=== PATIENT | female | born 1960 | race Caucasian/White ===

== ENCOUNTER 2019-11-18 20:19 | Emergency (ER) | payer SELFPAY ==
[~2019-11-18] VITALS: Ht 170.2 cm; Wt 81.6 kg
--- OUTSIDE RECORDS SUMMARY | 2019-11-18 20:22 | XMS REPORT ---
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 Allergies, Adverse Reactions, Alerts This patient has no known allergies or adverse reactions. Medications This patient has no known medications. Encounters Start Date/Time End Date/Time Encounter Type Admission Type Attending [facility] Care Facility Care Department Encounter ID 2018-07-16 00:00:00 2018-07-16 00:00:00 Outpatient [facility] [id number] 2018-07-11 07:02:03 2018-07-11 07:02:03 Outpatient [facility] [id number] 2018-06-27 10:14:13 2018-06-27 10:14:13 Outpatient [facility] [id number] 2018-06-27 00:00:00 2018-06-27 00:00:00 Outpatient [facility] [id number]
[2019-11-18] MEDS ORDERED: SODIUM CHLORIDE 0.9% 1000ML 1,000 ML IV STA (20:34)
[2019-11-18] MEDS ORDERED: HYDRALAZINE HCL 20 MG/ML VIAL IV ONE ×2 (20:34→21:00)
[2019-11-18 20:55] LABS: BASOPHILS # (AUTO) 0.1 (0.0-0.1); BASOPHILS % 0.7 % (0.0-1.0); EOSINOPHILS # (AUTO) 0.3 (0.0-0.4); EOSINOPHILS % 2.8 % (0.0-6.0); HEMATOCRIT 39.8 % (34.2-44.1); LYMPHOCYTES % 33.5 % (18.0-39.1); MEAN CORPUSCULAR HEMOGLOBIN 26.9 pg (28-32); MEAN CORPUSCULAR HGB CONC 32.7 g/dL (31-35); MEAN CORPUSCULAR VOLUME 82.2 fL (81-99); MONOCYTES # (AUTO) 0.5 (0.2-0.8); MONOCYTES % 5.3 % (4.4-11.3); NEUTROPHILS # (AUTO) 5.2 (2.1-6.9); NEUTROPHILS % 57.5 % (38.7-80.0); PLATELET COUNT 225 x10e3/uL (140-360); RED BLOOD COUNT 4.84 x10e6/uL (3.6-5.1); RED CELL DISTRIBUTION WIDTH 13.2 % (11.7-14.4)
[2019-11-18 21:15] LABS: ALANINE AMINOTRANSFERASE 15 IU/L (0-55); ALBUMIN 3.4 g/dL (3.5-5.0); ALBUMIN/GLOBULIN RATIO 0.7 (0.8-2.0); ALKALINE PHOSPHATASE 108 IU/L (40-150); ANION GAP 14.8 mmol/L (8-16); BLOOD UREA NITROGEN 20 mg/dL (7-26); BUN/CREATININE RATIO 27 (6-25); CALCIUM 9.2 mg/dL (8.4-10.2); CARBON DIOXIDE 29 mmol/L (22-29); CHLORIDE 98 mmol/L (98-107); CREATINE KINASE 50 IU/L (29-168); CREATININE, SERUM 0.74 mg/dL (0.57-1.11); EST GLOMERULAR FILTRATION RATE > 60 ML/MIN (60-); GLUCOSE 237 mg/dL (74-118); POTASSIUM 3.8 mmol/L (3.5-5.1); SODIUM 138 mmol/L (136-145)
--- NOTE | 2019-11-18 21:56 | Diagnostic Imaging Report ---
Examination: CT head without contrast Clinical Indication: Shaking. Technique: Transaxial noncontrast images from the skull base through the vertex were obtained. Sagittal and coronal reformatted images were done. Dose modulation, iterative reconstruction, and/or weight based adjustment of the mA/kV was utilized to reduce the radiation dose to as low as reasonably achievable. Comparison: None. Findings: Scalp: No abnormalities. Bones: Intact. No fractures. No blastic or lytic lesions. Brain sulci: Appropriate for patient's age. Ventricles: Normal in size and configuration. No hydrocephalus. Extra-axial space: No abnormalities. Parenchyma: No masses, hemorrhage, or acute or chronic cortical based vascular insults. Suprasellar region: No abnormalities. Craniocervical junction: The foramen magnum is patent. No Chiari one malformation. Impression: No acute intracranial abnormality. Signed by: Dr. Estefani Polo M.D. on 11/18/2019 9:54 PM
--- NOTE | 2019-11-18 22:39 | Diagnostic Imaging Report ---
EXAMINATION: CHEST 2 VIEWS INDICATION: Hypoglycemia COMPARISON: None FINDINGS: TUBES and LINES: None. LUNGS: Normal lung volumes. Lungs are clear. No consolidations. PLEURA: No pleural effusion or pneumothorax. HEART AND MEDIASTINUM: The cardiomediastinal silhouette is unremarkable. There are atherosclerotic calcifications within the aorta. BONES AND SOFT TISSUES: No acute osseous lesion. Soft tissues are unremarkable. UPPER ABDOMEN: No free air under the diaphragm. IMPRESSION: No acute thoracic radiographic abnormality. Signed by: Dion High DO on 11/18/2019 10:37 PM
[2019-11-18] MEDS ORDERED: IBUPROFEN 600 MG TAB ONE (23:29)
[2019-11-18] MEDS ORDERED: IBUPROFEN 600 MG TAB PO STA (23:30)
== END 2019-11-19 02:21 | disposition home or self-care (01) ==
LOC: ER 20:19
DX: R53.1 Weakness (principal); T38.3X1A Poisoning by insulin and oral hypoglycemic [antidiabetic] drugs, accidental (unintentional), initial encounter; E11.9 Type 2 diabetes mellitus without complications; I10 Essential (primary) hypertension
CPT/HCPCS: 36415; 70450; 71046; 80053; 82550; 82553; 82948; 83880; 84484; 85025; 93005; 99283; J0360

== ENCOUNTER 2020-05-12 18:24 | Emergency (ER) | payer SELFPAY ==
[~2020-05-12] VITALS: Ht 170.2 cm; Wt 81.6 kg
--- OUTSIDE RECORDS SUMMARY | 2020-05-12 18:42 | XMS REPORT | Continuity of Care Document ---
Author Author [facility] t Organization [facility] Address [address] [place] [address] Phone Unavailable Care Team Providers Care [employer]ator [employer] Name Role Phone NONSTAFF PCP Unavailable Sam Pang MD Attphys [phone] APRIL EDOUARD Attphys Unavailable Problems Condition Name Condition Details Condition Category Status Onset Date Resolution Date Last Treatment Date Treating Clinician Comments Source Type 2 diabetes mellitus, with long-term current use o f insulin Type 2 diabetes mellitus, with long-term current use of insulin Disease Active 2018-07-11 00:00:00 [facility] Atypical ductal hyperplasia of left breast Atypical du ctal hyperplasia of left breast Disease Active 2018-06-27 00:00:00 Overview: Added automatically from request for surgery [id number] [facility] Urinary tract infection Urinary tract infection Problem Active [facility] Allergies, Adverse Reactions, Alerts This patient has no known allergies or adverse reactions. Social History Social Habit Start Date Stop Date Quantity Comments Source Sex Assigned At [facility] Alcohol intake 2018-07-11 00:00:00 2018-07-11 00:00:00 Current non-drinker of alcohol (finding) [facility] Smoking Status Start Date Stop Date Source Never smoker [facility] Medications Ordered Medication Name Filled Medication Name Start Date Stop Da te Current Medication? Ordering Clinician Indication Dosage Frequency Signature (SIG) Comments Components Source albuterol (PROAIR HFA) 90 mcg/actuation inhaler 2020-04-18 00:00:00 2020-05-18 23:59:00 Yes 2{puff} Q4H Inhale 2 puffs every 4 (four) hours as needed for wheezing for up to 30 days. Jose contreras ondansetron (ZOFRAN) 4 MG tablet 2020-04-18 00:00:00 2020-04 23:59:00 No 4mg Q6H Take 1 tablet (4 mg total) by mouth every 6 (six) hours as needed for nausea or vomiting for up to 5 days. Hoa Ramon insulin glargine,hum.rec.anlog (LANTUS SC) 2018-07-11 07:07:57 Yes 70U Inject 70 Units under the skin every evening. [facility] metFORMIN (GLUCOPHAGE) 850 mg tablet 2018-07-11 07:07:57 Ye s 850mg Take 850 mg by mouth 2 times daily (with meals). [facility] GABAPENTIN OR 2018-07-11 07:07:57 Yes Take by mouth 400 mg AM; 800 mg PM . [facility] PRECISION XTRA GLUCOMETER 2009-08-25 00:00:00 Yes Polyneuropathy in diabetes(357.2) use as directed to monitor blood sugars [facility] Vital Signs Vital Name Observation Time Observation Value Comments Source Systolic blood pressure 2020-04-18 13:49:00 142 mm[Hg] Jose Ramon Diastolic blood pressure 2020-04-18 13:49:00 67 mm[Hg] Jose Ramon Heart rate 2020-04-18 13:49:00 91 /min Jose Ramon Body temperature 2020-04-18 13:49:00 37.33 Kylah Sammi Ramon Respiratory rate 2020-04-18 13:49:00 19 /min Sammi Ramon Oxygen saturation in Arterial blood by Pulse oximetry 04-18 13:49:00 96 /min Jose aRmon Body height 2020-04-18 11:34:00 170.2 cm Jose Ramon Body weight 2020-04-18 11:34:00 92.987 kg Jose Ramon BMI 2020-04-18 11:34:00 32.11 kg/m2 Jose Ramon Procedures Procedure Date / Time Performed Performing Clinician Sourc e XR CHEST 1 VW PORTABLE 2020-04-18 12:20:01 Mil Pang ECG ED PRELIMINARY INTERPRETATION 2020-04-18 11:41:59 Mil Pang ECG 12-LEAD 2020-04-18 11:37:40 Mil Pang COVID-19 QUALITATIVE PCR 2020-04-18 00:00:00 Robert Pang HC COMPLETE BLD COUNT W/AUTO DIFF 2020-04-18 00:00:00 Mil Pang COMPREHENSIVE METABOLIC PANEL 2020-04-18 00:00:00 Pang Chri stopher Sam Ramon TROPONIN 2020-04-18 00:00:00 Mil Pang B NATRIURETIC PEPTIDE 2020-04-18 00:00:00 Mil Pang ESTIMATED GFR 2020-04-18 00:00:00 Mil Pang Computed tomography of brain without radiopaque contrast 00:00:00 APRIL EDOUARD [facility] X-ray of chest, two views 2019-11-18 00:00:00 APRIL EDOUARD CH I [facility] Plan of Care Planned Activity Planned Date Details Comments Source Future Scheduled Test 2020-07-09 00:00:00 IMM Influenza Seas onal Jul to December (>/= 19 yrs) [code = IMM Influenza Seasonal Jul to December (>/= 19 yrs)] [facility] Scheduled Test 2020-05-09 00:00:00 INFLUENZA VACCINE [code = INFLUENZA VACCINE] [facility] Scheduled Test 2019-07-11 00:00:00 Hemoglobin A1c mychal surement (procedure) [code = 22474812] [facility] Scheduled Test 2009-12-23 00:00:00 BREAST CANCER SCRE ENING [code = BREAST CANCER SCREENING] [facility] Scheduled Test 2009-12-23 00:00:00 COLONOSCOPY SCREEN ING [code = COLONOSCOPY SCREENING] [facility] Scheduled Test 2009-12-23 00:00:00 SHINGLES VACCINES (#1) [code = SHINGLES VACCINES (#1)] [facility] Scheduled Test 2009-12-23 00:00:00 Screening for adrian gnant neoplasm of colon (procedure) [code = 232996245] [facility] Scheduled Test 1999 00:00:00 Breast Cancer Scrn (Yearly) [code = Breast Cancer Scrn (Yearly)] [facility] Scheduled Test 1980-12-23 00:00:00 Screening for adrian gnant neoplasm of cervix (procedure) [code = 384775380] [place] [facility] 1980-12-23 00:00:00 Screening for adrian gnant neoplasm of cervix (procedure) [code = 261222364] [facility] Scheduled Test 1977-12-23 00:00:00 DM Foot Exam (Year ly) [code = DM Foot Exam (Yearly)] [facility] Scheduled Test 1977-12-23 00:00:00 Urine screening fo r protein (procedure) [code = 668658491] [facility] Scheduled Test 1977-12-23 00:00:00 DM Retinal Exam (Y early) [code = DM Retinal Exam (Yearly)] [facility] Scheduled Test 1969-12-23 00:00:00 DIABETIC FOOT EXAM [code = DIABETIC FOOT EXAM] [facility] Scheduled Test 1969-12-23 00:00:00 URINE MICROALBUMIN [code = URINE MICROALBUMIN] [facility] Scheduled Test 1959 00:00:00 DIABETIC RETINAL E YE EXAM [code = DIABETIC RETINAL EYE EXAM] [facility] Encounters Start Date/Time End Date/Time Encounter Type Admission Type Attendi [facility] Care Department Encounter ID Source 2020-04-18 00:00:00 2020-04-18 00:00:00 Emergency DE MIL BENAVIDEZ [facility] [id number] [facility] 2019-11-18 20:19:00 2019-11-19 02:21:00 [facility]arted [id number] 2018-07-16 00:00:00 2018-07-16 00:00:00 Outpatient [facility] [id number] [facility] 2018-07-11 07:02:03 2018-07-11 07:02:03 Outpatient [facility] [id number] [facility] 2018-06-27 10:14:13 2018-06-27 10:14:13 Outpatient [facility] [id number] [facility] 2018-06-27 00:00:00 2018-06-27 00:00:00 Outpatient [facility] [id number] [facility] Results Test Description Test Time Test Comments Results Result Comments Source ECG 12 lead 2020-04-20 22:22:27 Test Item Ventricular rate (test code = 253) 107 Atrial rate (test code = 255) 107 NV interval (test code = 266) 186 QRSD interval (test code = 260) 84 QT interval (test code = 264) 326 QTC interval (test code = 265) 435 P axis 1 (test code = 267) 45 QRS axis 1 (test code = 268) 6 T wave axis (test code = 270) 24 EKG impression (test code = 273) Sinus tachycardia-Pos sible Anterior infarct , age undetermined-Abnormal ECG-In automated comparison with ECG of 02-JUL-2012 21:00,-Nonspecific T wave abnormality no longer evident in Anterolateral leads- Jose YennyCOVID-19 qualitative [id number] 02:30:19* Test Item Value Reference Range Interpretation Comments Interpretation (test code = 8116254) Positive results are indicative of active infection with 2019-nCoV but do not rule out bacterial infection or coinfection with other viruses. The agent detected may not be the definite cause of disease. COVID-19 qualitative PCR result (test code = 46751-5) Detected Not-Detected A COVID-19 qualitative PCR (test code = 7070) See link below for P DF Lab Report Lab Interpretation (test code = 18967-9) Abnormal Jose RamonYitrxxqgzUtljedlb5765-48-23 12:39:36* Test Item Value Reference Range Interpretation Comments Troponin (test code = 16999-6) <0.006 0-0.04 In patients suspected of having a myocardial infarction, along with all other appropriate clinical measures and actions including ECG and other diagnostics as appropriate, measure Ultra TnI at 0 hrs and at 3 hrs.Myocardial infarction VERY LIKELYThe 0 hr TnI level is > 0.10 ng/mL Cong cardial infarction LIKELYThe 0 hr TnI level is > 0.04 ng/mL and 3 hr level is increased or decreased by at least 0.020 ng/mL Myocardi al infarction VERY UNLIKELYBoth the 0 hr and 3 hr TnI levels <= 0.04 ng/mL(within normal limits) OR 0 hr is > 0.04 ng/mL and 3 hr is increased OR decreased by less than 0.020 ng/mL [facility] natriuretic tgqhphh3443-77-24 12:38:56* Test Item Value Reference Range Interpretation Comments BNP (test code = 92684-6) 21 pg/mL 0-100 [facility] chgev2383-45-09 12:37:12* Test Item Value Reference Range Interpretation Comments Sodium (test code = 2951-2) 132 135- 148 mEq/L L Potassium (test code = 2823-3) 4.3 3.5- 5.0 mEq/L Chloride (test code = 5-0) 95 98- 112 mEq/L L CO2 (test code = 2027-) 28 24- 31 mEq/L Anion gap (test code = 32014-9) 9@ANIO 7- 15 mEq/L BUN (test code = 3094-0) 12 mg/dL 8-23 Creatinine (test code = 2160-0) 0.60 mg/dL 0.5-0.9 Glucose (test code = 2345-7) 209 mg/dL 65-99 H Calcium (test code = 74765-3) 8.9 mg/dL 8.8-10.2 Protein (test code = 2885-2) 7.7 g/dL 6.3-8.3 - 4.6- 7.0 g/dL1 week 4.4-7.6 g/dL7 months-1year 5.1-7.3 g/dL1-2 years 5.6-7.5 g/dL>3 years 6.0-8.0 g/jY82-817 6.3-8.3 g/dL Albumin (test code = 1751-7) 4.0 g/dL 3.5-5 A/G ratio (test code = 1759-0) 1.1 0.7-3.8 Alkaline phosphatase (test code = 6768-6) 98 U/L 35-104 AST (test code = 1920-8) 60 U/L 10-35 H ALT (test code = 1742-6) 90 U/L 5-50 H Total bilirubin (test code = 1975-2) 0.4 mg/dL 0-1.2 Lab Interpretation (test code = 71321-7) Abnormal [place] [facility]Estim[facility] [id number] 12:37:12* Test Item Value Reference Range Interpretation Comments Estimated GFR (test code = 5488) >=90 mL/min/1.73 m2 Catergory Units InterpretationG1 >=90 Normal or highG2 60-89 Mildly rcbghoovaJ0v 45-59 Mildly to moderately wunskppfbI3b 30-44 Moderately to severely decreasedG4 15-29 Severely decreasedG5 <15 Kidney failureThe eGFR was calculated using the Chronic Kidney Disease Epidemiology Collaboration (CKD-EPI) equation. Interpretation is based on recommendations of the National Kidney Foundation-Kidney Disease Outcomes Quality Initiative (NKF-KDOQI) published in 2014. [place] MethodistXR Chest 1 Vw Rsokbogn0771-65-36 12:26:11Hm Interface, Radiology Results - 04/18/2020 12:29 PM CDTEXAMINATION: XR CHEST 1 VW PORTABLECLINICAL HISTORY: cough feverCOMPARISON: Chest x-ray IMPRESSION: Single frontal view reveals a stable cardiomediastinal silhou ette. Lungs are clear. Pleural margins are sharp. The remainder of the examinati on is unchanged.[facility]-[id number] MethodistCBC with platelet and urmgrnrmymzk4398-69-66 12:23:12* Test Item Value Reference Range Interpretation Comments WBC (test code = 43848-2) 5.13 4.50- 11.00 k/uL RBC (test code = 38703-2) 4.57 m/uL 4.2-5.5 HGB (test code = 718-7) 12.4 g/dL 12-16 HCT (test code = 4544-3) 38.2 % 37-47 MCV (test code = 787-2) 83.6 fL 82-100 MCH (test code = 785-6) 27.1 pg 27-34 MCHC (test code = 786-4) 32.5 g/dL 31-37 RDW - SD (test code = 98679-3) 40.3 fL 37-55 MPV (test code = 81322-4) 9.6 fL 8.8-13.2 Platelet count (test code = 11659-0) 179 150- 400 k/uL Nucleated RBC (test code = 65055-5) 0.00 /100 WBC Neutrophils (test code = 20075-6) 62.3 % 39-69 Lymphocytes (test code = 79896-8) 19.9 % 25-45 L Monocytes (test code = 68279-6) 16.0 % 0-10 H Eosinophils (test code = 33272-2) 0.6 % 0-5 Basophils (test code = 20814-9) 0.6 % 0-1 Lab Interpretation (test code = 17013-0) Abnormal [facility] ED Preliminary Interpretation - Not an Rkoxi2475-91-60 11:41:59* Test Item Value Reference Range Interpretation Comments MICHAEL (test code = MICHAEL) Mil Pang M D 04/19/2020 6:28 [facility] ED Preliminary Interpretation - Not an OrderPerformed by: Mil Pang MDAuthorized by: Mil Pang MD ECG reviewed by ED Physician in the 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 Ceuptse5881-94-05 00:21:00* Test Item Value Reference Range Interpretation Comments Bedside Glucose (test code = 20548-8) 70 70-120 Meter ID: [id number] [facility] Natriuretic Huzahjg0809-10-53 23:54:00* Test Item Value Reference Range Interpretation Comments B-Type Natriuretic Peptide (test code = 20838-9) < 10.0 0-100 [facility]ballCHES 2 [id number] 22:36:00 [facility] [address] [place] [address] Patient Name: ELIZA KIM MR #: [id number] : Age/Sex: 58/F Req #: [id number] Adm Physician: Ordered by: APRIL EDOUARD DO Report #: [id number] Location: ER Room/Bed: Procedure: [id number] DX/CHEST 2 VIEWS Exam Date: 11/18/19 Exam Time: 2114 REPORT STATUS: Signed EXAMINAT ION: CHEST 2 VIEWS INDICATION: Hypoglycemia COMPARISON: None FINDINGS: TUBES and LINES: None. LUNGS: Normal lung volum es. Lungs are clear. No consolidations. PLEURA: No pleural effusion or p neumothorax. HEART AND MEDIASTINUM: The cardiomediastinal silhouette is un remarkable. There are atherosclerotic calcifications within the aorta. ECHO JOAN AND SOFT TISSUES: No acute osseous lesion. Soft tissues are unremarkable . UPPER ABDOMEN: No free air under the diaphragm. IMPRESSION: No acute thoracic radiographic abnormality. Signed by: Dion High DO on 11/18/2019 10:37 PM Dictated By: DION HIGH DO 36 Transcribed By: SHANTAL on 2236 COPY TO: APRIL EDOUARD DO CT BRAIN [id number] 21:49:00 [place] [address] Patient Name: ELIZA KIM MR #: [id number] : 1960 Age/Sex: 58/F Req #: [id number] Adm Physician: Ordered by: APRIL EDOUARD DO Report #: [id number] Location: Room/Bed: Procedure: [id number] CT/CT BRAIN WO Exam Date: Exam Time: REPORT STATUS: Signed Examination: CT head w ithout contrast Clinical Indication: Shaking. Technique: Transaxial noncontr ast images from the skull base through the vertex were obtained. Sagittal and coronal reformatted images were done. Dose modulation, iterative reconstructio n, and/or weight based adjustment of the mA/kV was utilized to reduce the radi ation dose to as low as reasonably achievable. Comparison: None. Findi ngs: Scalp: No abnormalities. Bones: Intact. No fractures. No blastic or lytic lesions. Brain sulci: Appropriate for patient's age. Ventricles: Normal in size and configuration. No hydrocephalus. Extra-axial space: No abnormalities. Parenchyma: No masses, hemorrhage, or acute or chron ic cortical based vascular insults. Suprasellar region: No abnormalities. Craniocervical junction: The foramen magnum is patent. No Chiari one malform ation. Impression: No acute intracranial abnormality. Signed by: Dr. Markell Polo M.D. on 11/18/2019 9:54 PM Dictated By: MARKELL HILL MD 53 COPY TO: APRIL EDOUARD DO Creatine Kinase [id number] 21:24:00* Test Item Value Reference Range Interpretation Comments Creatine Kinase MB (test code = 44851-9) 1.60 0-5.0 [facility]landTroponin [id number] 21:24:00* Test Item Value Reference Range Interpretation Comments Troponin I (test code = WJH4217) < 0.001 0-0.300 [facility] Bqdqo7997-63-26 21:20:00* Test Item Value Reference Range Interpretation Comments Sodium Level (test code = 2951-2) 138 136-145 [facility]landPotassium Hjnrq8286-52-40 21:20:00* Test Item Value Reference Range Interpretation Comments Potassium Level (test code = 2823-3) 3.8 3.5-5.1 [facility]landChloride Ivsvs0984-97-95 21:20:00* Test Item Value Reference Range Interpretation Comments Chloride Level (test code = 2075-0) 98 98-107 [facility]landCarbon Dioxide [id number] 21:20:00* Test Item Value Reference Range Interpretation Comments Carbon Dioxide Level (test code = 2028-9) 29 22-29 [facility]landAnion [id number] 21:20:00* Test Item Value Reference Range Interpretation Comments Anion Gap (test code = 00245-4) 14.8 8-16 [facility]landBlood Urea Cmruzckf0988-30-74 21:20:00* Test Item Value Reference Range Interpretation Comments Blood Urea Nitrogen (test code = 3094-0) 20 7-26 [facility]landCreatinine2020-02-10 21:20:00* Test Item Value Reference Range Interpretation Comments Creatinine (test code = 2160-0) 0.74 0.57-1.11 [facility]landBUN/Creatinine Ydubz5084-33-25 21:20:00* Test Item Value Reference Range Interpretation Comments BUN/Creatinine Ratio (test code = 3097-3) 27 6-25 H [facility] PearlandEstimat Glomerular Filtration Rate 2019-11-18 21:20:00* Test Item Value Reference Range Interpretation Comments Estimat Glomerular Filtration Rate (test code = 844430673) > 60 >60 Ranges were taken from the National Kidney Disease Education Program and the [facility] literature.Reference ranges:60 or greater: Agekth79-15 ( for 3 consecutive months): Chronic kidney disease 15 or less: Kidney failureHCA Houston Healthcare PearlandGlucose Qjifc5956-93-56 21:20:00* Test Item Value Reference Range Interpretation Comments Glucose Level (test code = FYN8753) 237 74-118 H [facility]landCalcium Lvakk6029-02-91 21:20:00* Test Item Value Reference Range Interpretation Comments Calcium Level (test code = 26265-9) 9.2 8.4-10.2 [facility]landTotal Vydyoprqz7401-92-05 21:20:00* Test Item Value Reference Range Interpretation Comments Total Bilirubin (test code = 1975-2) 0.4 0.2-1.2 [facility] PearlandAspartate Amino Transf (AST/SGOT) 2019-11-18 21:20:00* Test Item Value Reference Range Interpretation Comments Aspartate Amino Transf (AST/SGOT) (test code = Aspartate Amino Transf (AST/SGOT)) 14 5-34 [facility]landAlanine Aminotransferase (ALT/SGPT) 2019-11-18 21:20:00* Test Item Value Reference Range Interpretation Comments Alanine Aminotransferase (ALT/SGPT) (test code = 1742-6) 15 0-55 [facility]landTotal Erkbtjb3766-04-03 21:20:00* Test Item Value Reference Range Interpretation Comments Total Protein (test code = 2885-2) 8.1 6.5-8.1 [facility] PearlandAlbumin2020-02-10 21:20:00* Test Item Value Reference Range Interpretation Comments Albumin (test code = 1751-7) 3.4 3.5-5.0 L [facility]landGlobulin2020-02-10 21:20:00* Test Item Value Reference Range Interpretation Comments Globulin (test code = 25746-5) 4.7 2.3-3.5 H [facility] PearlandAlbumin/Globulin Dvntl4730-20-72 21:20:00 * Test Item Value Reference Range Interpretation Comments Albumin/Globulin Ratio (test code = 1759-0) 0.7 0.8-2.0 L [facility] PearlandAlkaline Tzqcfibvyan8762-42-21 21:20:00* Test Item Value Reference Range Interpretation Comments Alkaline Phosphatase (test code = 6768-6) 108 40-150 [facility]landCreatine Inpzsa1022-47-01 21:20:00* Test Item Value Reference Range Interpretation Comments Creatine Kinase (test code = 2157-6) 50 29-168 [facility]landWhite Blood Yjwng9072-05-87 21:08:00* Test Item Value Reference Range Interpretation Comments White Blood Count (test code = 6690-2) 8.98 4.8-10.8 [facility]landRed Blood Bkghe9692-44-85 21:08:00* Test Item Value Reference Range Interpretation Comments Red Blood Count (test code = 789-8) 4.84 3.6-5.1 [facility]landHemoglobin2020-02-10 21:08:00* Test Item Value Reference Range Interpretation Comments Hemoglobin (test code = 30276-4) 13.0 12.0-16.0 [facility]landHematocrit2020-02-10 21:08:00* Test Item Value Reference Range Interpretation Comments Hematocrit (test code = 4544-3) 39.8 34.2-44.1 [facility] PearlandMean Corpuscular Hmzwig3382-72-98 21:08:00* Test Item Value Reference Range Interpretation Comments Mean Corpuscular Volume (test code = 787-2) 82.2 81-99 [facility]landMean Corpuscular Yeznnrkenl2684-97-37 21:08:00* Test Item Value Reference Range Interpretation Comments Mean Corpuscular Hemoglobin (test code = 785-6) 26.9 28-32 L [facility] PearlandMean Corpuscular Hemoglobin Concent 2019-11-18 21:08:00* Test Item Value Reference Range Interpretation Comments Mean Corpuscular Hemoglobin Concent (test code = 786-4) 32.7 31-35 [facility]landRed Cell Distribution [id number] 21:08:00* Test Item Value Reference Range Interpretation Comments Red Cell Distribution Width (test code = 05939-1) 13.2 11.7 -14.4 [facility] PearlandPlatelet Pwebc4809-63-04 21:08:00* Test Item Value Reference Range Interpretation Comments Platelet Count (test code = 777-3) 225 140-360 [facility] PearlandNeutrophils (%) (Auto)2019-11-18 21:08:00 * Test Item Value Reference Range Interpretation Comments Neutrophils (%) (Auto) (test code = 32686-2) 57.5 38.7-80.0 [facility]landLymphocytes (%) (Auto)2019-11-18 21:08:00 * Test Item Value Reference Range Interpretation Comments Lymphocytes (%) (Auto) (test code = 736-9) 33.5 18.0-39.1 [facility]landMonocytes (%) (Auto)2019-11-18 21:08:00* Test Item Value Reference Range Interpretation Comments Monocytes (%) (Auto) (test code = 5905-5) 5.3 4.4-11.3 [facility]landEosinophils (%) (Auto)2019-11-18 21:08:00 * Test Item Value Reference Range Interpretation Comments Eosinophils (%) (Auto) (test code = 713-8) 2.8 0.0-6.0 [facility]landBasophils (%) (Auto)2019-11-18 21:08:00* Test Item Value Reference Range Interpretation Comments Basophils (%) (Auto) (test code = 706-2) 0.7 0.0-1.0 [facility] PearlandIM GRANULOCYTES %2019-11-18 21:08:00* Test Item Value Reference Range Interpretation Comments IM GRANULOCYTES % (test code = IM GRANULOCYTES %) 0.2 0.0- 1.0 [facility] PearlandNeutrophils # (Auto)2019-11-18 21:08:00* Test Item Value Reference Range Interpretation Comments Neutrophils # (Auto) (test code = 751-8) 5.2 2.1-6.9 [facility]landLymphocytes # (Auto)2019-11-18 21:08:00* Test Item Value Reference Range Interpretation Comments Lymphocytes # (Auto) (test code = 90600-7) 3.0 1.0-3.2 [facility]landMonocytes # (Auto)2019-11-18 21:08:00* Test Item Value Reference Range Interpretation Comments Monocytes # (Auto) (test code = 742-7) 0.5 0.2-0.8 [facility]landEosinophils # (Auto)2019-11-18 21:08:00* Test Item Value Reference Range Interpretation Comments Eosinophils # (Auto) (test code = 711-2) 0.3 0.0-0.4 [facility]landBasophils # (Auto)2019-11-18 21:08:00* Test Item Value Reference Range Interpretation Comments Basophils # (Auto) (test code = 704-7) 0.1 0.0-0.1 [facility] PearlandAbsolute Immature Granulocyte (auto 2019-11-18 21:08:00* Test Item Value Reference Range Interpretation Comments Absolute Immature Granulocyte (auto (codi t code = Absolute Immature Granulocyte (auto) 0.02 0-0.1 [facility]
--- OUTSIDE RECORDS SUMMARY | 2020-05-12 18:42 | XMS REPORT | Clinical Summary ---
Author Author [facility] ict Organization [facility] ict Address Unknown Phone Unavailable Care Team Providers Care Community Education Coordinator Name Role Phone PCP Unavailable Allergies Comments Active Allergy Reactions Severity Noted Date No Known Allergies 08/25/2009 Medications End Date Status Medication Sig Dispensed Refills Start Date Active PRECISION XTRA use as 1 0 GLUCOMETERIndications: directed to 9 Polyneuropathy in monitor blood diabetes(357.2) sugars Active insulin Inject 70 0 glargine,hum.rec.anlog Units under (LANTUS SC) the skin every evening. Active metFORMIN (GLUCOPHAGE) Take 850 mg 0 850 mg tablet by mouth 2 times daily (with meals). Active GABAPENTIN OR Take by mouth 0 400 mg AM; 800 mg PM . Active Problems Problem Noted Date Type 2 diabetes mellitus, with long-term current use of insulin 07/11/2018 Atypical ductal hyperplasia of left breast 8 Overview: Added automatically from request for lena arshadjuancarlos [id number] Social History Date Tobacco Use Types Packs/Day Years Used Never Smoker Smokeless Tobacco: Never Used Tobacco Cessation: Counseling Given: Yes Drinks/Week oz/Week Comments Alcohol Use No Sex Assigned at Date Recorded Not on file Industry Job Start Date Occupation Not on file Not on file Not on file Travel End Travel History Travel Start No recent travel history available. Last Filed Vital Signs Not on file Plan of Treatment Health Maintenance Due Date Last Done Comments DM Foot Exam (Yearly) 12/23/1977 DM Microalbumin Urine 12/23/1977 Scrn (Yearly) DM Retinal Exam (Yearly) 12/23/1977 Cervical Cancer Scrn (3 12/23/1980 Yrs) Breast Cancer Scrn 1999 (Yearly) Colorectal Cancer Scrn 12/23/2009 Annual (FIT/FOBT) Age 50 to 75 DM HGBA1C (Yearly) 07/11/2019 07/11/2018 IMM Influenza Seasonal 07/09/2020Jul to December (>/= 19 yrs) Results Not on fileafter 05/12/2019
--- OUTSIDE RECORDS SUMMARY | 2020-05-12 18:42 | XMS REPORT | Clinical Summary ---
Author Author [facility] Address Unknown Phone Unavailable Care Team Providers Care Activities Concierge Name Role Phone PCP Unavailable Allergies No Known Allergies Medications End Date Status Medication Sig Dispensed Refills Start Date 05/18/2020 Active albuterol (PROAIR HFA) 90 Inhale 2 1 Inhaler 0 mcg/actuation inhaler puffs every 4 0 (four) hours as needed for wheezing for up to 30 days. 04/23/2020 ondansetron (ZOFRAN) 4 MG Take 1 tablet 20 tablet 0 tablet (4 mg total) 0 by mouth every 6 (six) hours as needed for nausea or vomiting for up to 5 days. Active Problems Not on file Encounters Care Team Description Date Type Specialty Goldy Pang MD Suspected Covid-19 Virus Infection (Prim kelli Dx) 04/18/2020 Emergency Emergency Medicine after 05/12/2019 Social History Date Tobacco Use Types Packs/Day Years Used Never Assessed Sex Assigned at Date Recorded Not on file Industry Job Start Date Occupation Not on file Not on file Not on file Travel End Travel History Travel Start No recent travel history available. Last Filed Vital Signs Reading Time Taken Comments Vital Sign 142/67 04/18/2020 1:49 PM CDT Blood Pressure 91 04/18/2020 1:49 PM CDT Pulse 37.3 C (99.2 F) 04/18/2020 1:49 PM CDT Temperature 19 04/18/2020 1:49 PM CDT Respiratory Rate 96% 04/18/2020 1:49 PM CDT Oxygen Saturation - - Inhaled Oxygen Concentration 93 kg (205 lb) 04/18/2020 11:34 AM CDT Weight 170.2 cm (5' 7") 04/18/2020 11:34 AM CDT Height 32.11 04/18/2020 11:34 AM CDT Body Mass Index Plan of Treatment Health Maintenance Due Date Last Done Comments DIABETIC RETINAL EYE EXAM 1960 DIABETIC FOOT EXAM 12/23/1969 URINE MICROALBUMIN 12/23/1969 CERVICAL CANCER SCREENING 12/23/1980 BREAST CANCER SCREENING 12/23/2009 COLONOSCOPY SCREENING 12/23/2009 SHINGLES VACCINES (#1) 12/23/2009 INFLUENZA VACCINE 05/09/2020 07/16/2012 Procedures Comments Procedure Name Priority Date/Time Associated Diag nosis XR CHEST 1 VW PORTABLE STAT 04/18/2020 12:20 PM CDT ECG ED PRELIMINARY Routine 04/18/2020 INTERPRETATION 11:41 AM CDT ECG 12-LEAD Routine 04/18/2020 11:37 AM CDT ESTIMATED GFR STAT 04/18/2020 12:00 AM CDT B NATRIURETIC PEPTIDE STAT 04/18/2020 12:00 AM CDT TROPONIN STAT 04/18/2020 12:00 AM CDT COMPREHENSIVE METABOLIC STAT 04/18/2020 PANEL 12:00 AM CDT HC COMPLETE BLD COUNT STAT 04/18/2020 W/AUTO DIFF 12:00 AM CDT COVID-19 QUALITATIVE PCR STAT 04/18/2020 12:00 AM CDT after 05/12/2019 Results * XR Chest 1 Vw Portable (04/18/2020 12:20 PM CDT) Specimen Narrative Performed At EXAMINATION: XR CHEST 1 VW PORTABLE [facility] CLINICAL HISTORY: cough fever COMPARISON: Chest x-ray 07/07/2012 IMPRESSION: Single frontal view reveals a stable cardiomediastinal silhouette. Lungs are clear. Pleural margins are sh mariya. The remainder of the examination is unchanged. [facility]-[id number] Procedure Note Hm Interface, Radiology Results Incoming - 04/18/2020 12:29 PM CDT EXAMINATION: XR CHEST 1 VW PORTABLE CLINICAL HISTORY: cough fever COMPARISON: Chest x-ray 07/07/2012 IMPRESSION: Single frontal view reveals a stable cardiomediastinal silhouette. Lungs are clear. Pleural margins are sharp. The remainder of the examination is unchanged. [facility]-[id number] Performing Organization Address [facility] one Number [facility] [address] [place] [address] * ECG ED Preliminary Interpretation - Not an Order (04/18/2020 11:41 AM CDT) Narrative Performed At Goldy Pang MD 04/08 6:28 AM ECG ED Preliminary Interpretation - Not an Order Performed by: Goldy Pang MD Authorized by: Goldy Pang MD ECG reviewed by ED Physician in the abs ence of a vice president network: yes Interpretation: Interpretation: abnormal Rate: ECG rate: 107 ECG rate assessment: tachycardic Rhythm: Rhythm: sinus tachycardia Ectopy: Ectopy: none QRS: QRS axis: Normal Conduction: Conduction: normal ST segments: ST segments: Normal T waves: T waves: flattening Flattening: III * ECG 12 lead (04/18/2020 11:37 AM CDT) Ventricular 107 [facility] rate Atrial rate 107 [facility] NE interval 186 [facility] QRSD interval 84 [facility] QT interval 326 [facility] QTC interval 435 [facility] P axis 1 45 [facility] QRS axis 1 6 [facility] T wave axis 24 [facility] EKG impression Sinus tachycardia-Possible [facility] M[facility] Anterior infarct , age undetermined-Abnormal ECG-In automated comparison with ECG of -JUN-2012 21:00,-Nonspecific T wave abnormality no longer evident in Anterolateral leads- Specimen Narrative Performed At This result has an attachment that is n ot available. Performing Organization Address [facility] Ph one Number [facility] MUSE [address] [place] [address] * Estimated GFR (04/18/2020 12:00 AM CDT) Estimated GFR >=90 mL/min/1.73 m2 [place] Comment: [facility] CLE[facility] Interpretation G1 >=90 Normal or high G2 60-89 Mildly decreased G3a 45-59 Mildly to moderately decreased G3b 30-44 Moderately to severely decreased G4 15-29 Severely decreased G5 <15 Kidney failure The eGFR was calculated using the Chronic Kidney Disease Epidemiology Collaboration (CKD-EPI) equation. Interpretation is based on recommendations of the National Kidney Foundation-Kidney Disease Outcomes Quality Initiative (NKF-KDOQI) published in 2014. Specimen Performing Organization Address City/State/Zipcode Ph one Number [facility] [place] [place] [address] [place] [address] PATHOLOGY AND GENOMIC MEDICINE [place] CLEAR [address] [place] [address] [facility] * COVID-19 qualitative PCR (04/18/2020 12:00 AM CDT) Interpretation Positive results are DANGELO indicative of active infection [facility] with 2019-nCoV but do not rule HOSPITAL out bacterial infection or coinfection with other viruses. The agent detected may not be the definite cause of disease. COVID-19 Detected (A) Not-Detected [place] qualitative PCR [facility] result HOSPITAL COVID-19 See link below for PDF Lab [place] qualitative PCR ReportComment: Case Number: [facility] [id number] HOSPITAL Specimen Nasopharyngeal swab Performing Organization Address City/[facility] Ph one Number [facility] DEPARTMENT OF [address] [place] [address] PATHOLOGY AND GENOMIC MEDICINE [place] [address] [place] [address] [facility] * Troponin (04/18/2020 12:00 AM CDT) Troponin <0.006 0.000 - 0.040 ng/mL [place] Comment: GM LONG In patients suspected of [facility] having a myocardial infarction, along with all other appropriate clinical measures and actions including ECG and other diagnostics as appropriate, measure Ultra TnI at 0 hrs and at 3 hrs. Myocardial infarction VERY LIKELY The 0 hr TnI level is > 0.10 ng/mL Myocardial infarction LIKELY The 0 hr TnI level is > 0.04 ng/mL and 3 hr level is increased or decreased by at least 0.020 ng/mL Myocardial infarction VERY UNLIKELY Both the 0 hr and 3 hr TnI levels <= 0.04 ng/mL(within normal limits) OR 0 hr is > 0.04 ng/mL and 3 hr is increased OR decreased by less than 0.020 ng/mL Specimen Blood Performing Organization Address City/[facility] Ph one Number [facility] [place] [address] [place], [place] [address] PATHOLOGY AND GENOMIC MEDICINE [facility] [address] [place] [address] [facility] * CBC with platelet and differential (04/18/2020 12:00 AM CDT) WBC 5.13 4.50 - 11.00 k/uL [facility] RBC 4.57 4.20 - 5.50 m/uL [facility] HGB 12.4 12.0 - 16.0 g/dL [facility] HCT 38.2 37.0 - 47.0 % [facility] MCV 83.6 82.0 - 100.[address] [facility] MCH 27.1 27.0 - 34.[address] [facility] MCHC 32.5 31.0 - 37.0 g/dL [facility] RDW - SD 40.3 37.0 - 55.[address] [facility] MPV 9.6 8.8 - 13.[address] [facility] Platelet count 179 150 - 400 k/uL [facility] Nucleated RBC 0.00 /[address] [facility] Neutrophils 62.3 39.0 - 69.0 % [facility] Lymphocytes 19.9 (L) 25.0 - 45.0 % [facility] Monocytes 16.0 (H) 0.0 - 10.0 % [facility] Eosinophils 0.6 0.0 - 5.0 % [facility] Basophils 0.6 0.0 - 1.0 % [facility] Specimen Blood Performing Organization Address City/[facility] Ph one Number [facility] [place] [place] [address] [address] [place], [place] [address] PATHOLOGY AND GENOMIC MEDICINE [facility] [address] [address] * B natriuretic peptide (04/18/2020 12:00 AM CDT) Pathologist [facility] BNP 21 0 - 100 pg/mL [facility] Specimen Blood Performing Organization Address City/State/Zipcode Ph one Number [facility] [place] [place] [address] [place] [address] PATHOLOGY AND GENOMIC MEDICINE [facility] [address] [address] [facility] [address] * Comprehensive metabolic panel (04/18/2020 12:00 AM CDT) Sodium 132 (L) 135 - 148 mEq/L [facility] Potassium 4.3 3.5 - 5.0 mEq/L [facility] Chloride 95 (L) 98 - 112 mEq/L [facility] CO2 28 24 - 31 mEq/L [facility] Anion gap 9@ANIO 7 - 15 mEq/L [facility] BUN 12 8 - 23 mg/dL [facility] Creatinine 0.60 0.50 - 0.90 mg/dL [facility] Glucose 209 (H) 65 - 99 mg/dL [facility] Calcium 8.9 8.8 - 10.2 mg/dL [facility] Protein 7.7 6.3 - 8.3 g/dL [place] Comment: [facility] [place] 4.6-7.0 g/dL 1 week 4.4-7.6 g/dL 7 months-1year 5.1-7.3 g/dL 1-2 years 5.6-7.5 g/dL >3 years 6.0-8.0 g/dL 18-150 6.3-8.3 g/dL Albumin 4.0 3.5 - 5.0 g/dL [facility] A/G ratio 1.1 0.7 - 3.8 [facility] Alkaline 98 35 - 104 U/L [place] phosphatase [facility] AST 60 (H) 10 - 35 U/L [facility] ALT 90 (H) 5 - 50 U/L [facility] Total bilirubin 0.4 0.0 - 1.2 mg/dL 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
[2020-05-12] MEDS ORDERED: ASPIRIN 81 MG CHEW TAB PO NR (18:45)
--- NOTE | 2020-05-12 18:45 | Emergency Department Note ---
History of Present Illnes History of Present Illness Chief Complaint: COVID PUI History of Present Illness This is a 59 year old female with CP substernal with persistant cough of one week direction. Recent (+) COVID - 19 test on 03/19/2020 . Historian: Patient Arrival Mode: Car Onset (how long ago): week(s) (1) Severity: moderate Onset quality: gradual Duration (how long): week(s) (1) Progression: worsening Chronicity: new Context: Reports recent illness Relieving factors: none Exacerbating factors: none Associated symptoms: Reports denies other symptoms Treatments prior to arrival: none Previous service: tests performed Past Medical/Family History Physician Review I have reviewed the patient's past medical and family history. Any updates have been documented here. Past Medical History Recent Fever: No Clinical Suspicion of Infectio: Yes New/Unexplained Change in Ment: No Past Medical History: Hypertension, Diabetes Past Surgical History: Appendectomy Other Surgery: I&D TO GROIN ABSCESS Social History Smoking Cessation: Never Smoker Any Illegal Drug Use: No Other Last Tetanus: unknown Review of Systems Review of Systems Constitutional: Denies fever, Denies malaise, Denies weakness EENTM: Reports no symptoms Cardiovascular: Reports chest pain Respiratory: Reports cough Gastrointestinal: Reports no symptoms Genitourinary: Reports no symptoms Musculoskeletal: Reports no symptoms Integumentary: Reports no symptoms Neurological: Reports no symptoms Psychological: Reports no symptoms Endocrine: Reports no symptoms Hematological/Lymphatic: Reports no symptoms Physical Exam Related Data Allergies: Coded Allergies: No Known Allergies (Unverified , 05/05/15) Triage Vital Signs Vital Signs Date Time Temp Pulse Resp B/P (MAP) Pulse Ox O2 Delivery O2 Flow Rate FiO2 05/12/20 18:29 98.8 109 18 182/97 98 Room Air Vital signs reviewed: Yes Physical Exam CONSTITUTIONAL Constitutional: Present well-developed, Present well-nourished HENT HENT: Present normocephalic, Present atraumatic, Present oropharynx clear/brent st, Present nose normal HENT L/R: Present left ext ear normal, Present right ext ear normal EYES Eyes: Reports PERRL, Reports conjunctivae normal NECK Neck: Present ROM normal PULMONARY Pulmonary: Present effort normal, Present breath sounds normal CARDIOVASCULAR Cardiovascular: Present heart sounds normal, Present capillary refill normal, Present normal rate, Present tachycardia GASTROINTESTINAL Abdominal: Present soft, Present nontender, Present bowel sounds normal GENITOURINARY Genitourinary: Present exam deferred SKIN Skin: Present warm, Present dry MUSCULOSKELETAL Musculoskeletal: Present ROM normal NEUROLOGICAL Neurological: Present alert, Present oriented x 3, Present no gross motor or sensory deficits PSYCHOLOGICAL Psychological: Present mood/affect normal, Present judgement normal Results Laboratory Lab results reviewed: Yes Laboratory comments Laboratory Tests Test 05/12/20 19:15 White Blood Count 12.75 x10e3/uL (4.8-10.8) Red Blood Count 4.62 x10e6/uL (3.6-5.1) Hemoglobin 12.3 g/dL (12.0-16.0) Hematocrit 39.1 % (34.2-44.1) Mean Corpuscular Volume 84.6 fL (81-99) Mean Corpuscular Hemoglobin 26.6 pg (28-32) Mean Corpuscular Hemoglobin Concent 31.5 g/dL (31-35) Red Cell Distribution Width 13.8 % (11.7-14.4) Platelet Count 322 x10e3/uL (140-360) Neutrophils (%) (Auto) 56.6 % (38.7-80.0) Lymphocytes (%) (Auto) 32.2 % (18.0-39.1) Monocytes (%) (Auto) 8.9 % (4.4-11.3) Eosinophils (%) (Auto) 1.5 % (0.0-6.0) Basophils (%) (Auto) 0.5 % (0.0-1.0) Neutrophils # (Auto) 7.2 (2.1-6.9) Lymphocytes # (Auto) 4.1 (1.0-3.2) Monocytes # (Auto) 1.1 (0.2-0.8) Eosinophils # (Auto) 0.2 (0.0-0.4) Basophils # (Auto) 0.1 (0.0-0.1) Absolute Immature Granulocyte (auto 0.04 x10e3/uL (0-0.1) Sodium Level 142 mmol/L (136-145) Potassium Level 3.8 mmol/L (3.5-5.1) Chloride Level 102 mmol/L (98-107) Carbon Dioxide Level 27 mmol/L (22-29) Anion Gap 16.8 mmol/L (8-16) Blood Urea Nitrogen 13 mg/dL (7-26) Creatinine 0.64 mg/dL (0.57-1.11) Estimat Glomerular Filtration Rate > 60 ML/MIN (60-) BUN/Creatinine Ratio 20 (6-25) Glucose Level 69 mg/dL (74-118) Calcium Level 9.3 mg/dL (8.4-10.2) Total Bilirubin 0.3 mg/dL (0.2-1.2) Aspartate Amino Transf (AST/SGOT) 17 IU/L (5-34) Alanine Aminotransferase (ALT/SGPT) 18 IU/L (0-55) Alkaline Phosphatase 86 IU/L (40-150) Creatine Kinase 48 IU/L (29-168) Creatine Kinase MB 1.00 ng/mL (0-5.0) Troponin I < 0.001 ng/mL (0-0.300) B-Type Natriuretic Peptide < 10.0 pg/mL (0-100) Total Protein 8.4 g/dL (6.5-8.1) Albumin 3.3 g/dL (3.5-5.0) Globulin 5.1 g/dL (2.3-3.5) Albumin/Globulin Ratio 0.6 (0.8-2.0) Imaging Imaging results reviewed: Yes Impressions [place] [address] Patient Name: CANDICE KIM MR #: [id number] : 1960 Age/Sex: 59/F Req #: [id number] Adm Physician: Ordered by: APRIL EDOUARD DO Report #: [id number] Location: ER Room/Bed: Procedure: [id number] DX/CHEST SINGLE (PORTABLE) Exam Date: Exam Time: REPORT STATUS: Signed Examination: Single AP view of the chest. COMPARISON: None. INDICATION: Shortness of breath DISCUSSION: Lines/tubes: None. Lungs: Groundglass opacities predominantly peripherally. Pleura: No pleural effusion or pneumothorax. Heart and mediastinum: The heart and the mediastinum are unremarkable. Bones and soft tissues: No acute bony abnormalities. IMPRESSION: Peripheral ground glass opacities may be reflective of pneumonia, including viral Signed by: Dr. Arvin Alcaraz M.D. on 05/12/2020 7:20 PM Dictated By: ARVIN ALCARAZ MD 19 Transcribed By: SHANTAL on 05/12/201919 COPY TO: APRIL EDOUARD DO~ Procedures 12 Lead ECG Interpretation ECG Interpretation : ECG: ECG 1 Desktop Support Consultant: Interpreted by ED physician Date: May 12, 2020 Time: 19:23 Prior ECG tracings: reviewed Rhythm: sinus tachycardia BPM: 105 ST segments normal: Yes T waves normal: Yes Other findings: PRWP, prolonged QTc interval Clinical Impression: non-specific ECG Assessment & Plan Medical Decision Making MDM 59 yof presents with chest pain. CMP, CBC, EKG, CXR and cardiac enzymes ordered for consideration of ACS, PE, costocondritis, Chest wall pain, COVID-19 pneumonia and pneumothorax considered. labs, imaging and EKG reviewed . Assessment & Plan Final Impression: (1) Viral pneumonia (2) Chest pain, atypical Depart Disposition: HOME, SELF-CARE Last Vital Signs Vital Signs Date Time Temp Pulse Resp B/P (MAP) Pulse Ox O2 Delivery O2 Flow Rate FiO2 05/12/20 18:29 98.8 109 18 182/97 98 Room Air Date Time Temp Pulse Resp B/P (MAP) Pulse Ox O2 Delivery O2 Flow Rate FiO2 05/12/20 18:29 98.8 109 18 182/97 98 Room Air Home Meds No Active Prescriptions or Reported Meds Medications in the ED Aspirin 81 mg PRN PO ; Start 05/12/20 at 18:45; Stop 05/12/20 at 19:59 APRIL EDOUARD DO May 12, 2020 18:45
--- NOTE | 2020-05-12 19:23 | Diagnostic Imaging Report ---
Examination: Single AP view of the chest. COMPARISON: None. INDICATION: Shortness of breath DISCUSSION: Lines/tubes: None. Lungs: Groundglass opacities predominantly peripherally. Pleura: No pleural effusion or pneumothorax. Heart and mediastinum: The heart and the mediastinum are unremarkable. Bones and soft tissues: No acute bony abnormalities. IMPRESSION: Peripheral ground glass opacities may be reflective of pneumonia, including viral Signed by: Dr. Casper Cr M.D. on 05/12/2020 7:20 PM
[2020-05-12 19:46] LABS: BASOPHILS # (AUTO) 0.1 (0.0-0.1); BASOPHILS % 0.5 % (0.0-1.0); EOSINOPHILS # (AUTO) 0.2 (0.0-0.4); EOSINOPHILS % 1.5 % (0.0-6.0); HEMATOCRIT 39.1 % (34.2-44.1); HEMOGLOBIN 12.3 g/dL (12.0-16.0); LYMPHOCYTES # (AUTO) 4.1 (1.0-3.2); LYMPHOCYTES % 32.2 % (18.0-39.1); MEAN CORPUSCULAR HEMOGLOBIN 26.6 pg (28-32); MEAN CORPUSCULAR HGB CONC 31.5 g/dL (31-35); MEAN CORPUSCULAR VOLUME 84.6 fL (81-99); MONOCYTES # (AUTO) 1.1 (0.2-0.8); MONOCYTES % 8.9 % (4.4-11.3); NEUTROPHILS # (AUTO) 7.2 (2.1-6.9); NEUTROPHILS % 56.6 % (38.7-80.0); PLATELET COUNT 322 x10e3/uL (140-360); RED BLOOD COUNT 4.62 x10e6/uL (3.6-5.1); RED CELL DISTRIBUTION WIDTH 13.8 % (11.7-14.4)
[2020-05-12 19:58] LABS: ALANINE AMINOTRANSFERASE 18 IU/L (0-55); ALBUMIN 3.3 g/dL (3.5-5.0); ALBUMIN/GLOBULIN RATIO 0.6 (0.8-2.0); ALKALINE PHOSPHATASE 86 IU/L (40-150); ANION GAP 16.8 mmol/L (8-16); BLOOD UREA NITROGEN 13 mg/dL (7-26); BUN/CREATININE RATIO 20 (6-25); CALCIUM 9.3 mg/dL (8.4-10.2); CARBON DIOXIDE 27 mmol/L (22-29); CHLORIDE 102 mmol/L (98-107); CREATINE KINASE 48 IU/L (29-168); CREATININE, SERUM 0.64 mg/dL (0.57-1.11); EST GLOMERULAR FILTRATION RATE > 60 ML/MIN (60-); GLUCOSE 69 mg/dL (74-118); POTASSIUM 3.8 mmol/L (3.5-5.1); SODIUM 142 mmol/L (136-145)
== END 2020-05-12 20:45 | disposition home or self-care (01) ==
LOC: ER 18:30
DX: R07.89 Other chest pain (principal); J12.9 Viral pneumonia, unspecified; R05 Cough; E11.649 Type 2 diabetes mellitus with hypoglycemia without coma; I10 Essential (primary) hypertension
CPT/HCPCS: 36415; 71045; 80053; 82550; 82553; 83880; 84484; 85025; 93005; 99284

== ENCOUNTER 2021-03-21 16:42 | Emergency (ER) | payer SELFPAY ==
[~2021-03-21] VITALS: Ht 167.6 cm; Wt 95.3 kg
[2021-03-21 17:49] LABS: BASOPHILS # (AUTO) 0.1 (0.0-0.1); BASOPHILS % 0.6 % (0.0-1.0); EOSINOPHILS # (AUTO) 0.2 (0.0-0.4); EOSINOPHILS % 2.5 % (0.0-6.0); HEMATOCRIT 38.6 % (34.2-44.1); HEMOGLOBIN 12.5 g/dL (12.0-16.0); LYMPHOCYTES # (AUTO) 2.3 (1.0-3.2); LYMPHOCYTES % 27.4 % (18.0-39.1); MEAN CORPUSCULAR HEMOGLOBIN 26.9 pg (28-32); MEAN CORPUSCULAR HGB CONC 32.4 g/dL (31-35); MONOCYTES # (AUTO) 0.6 (0.2-0.8); MONOCYTES % 6.7 % (4.4-11.3); NEUTROPHILS # (AUTO) 5.2 (2.1-6.9); NEUTROPHILS % 62.4 % (38.7-80.0); PLATELET COUNT 256 x10e3/uL (140-360); RED BLOOD COUNT 4.65 x10e6/uL (3.6-5.1); RED CELL DISTRIBUTION WIDTH 13.5 % (11.7-14.4)
[2021-03-21 17:50] LABS: CLARITY,URINE CLOUDY (CLEAR); COLOR,URINE YELLOW (YELLOW); LEUKOCYTE ESTERASE ,URINE 1+ (NEGATIVE); NITRITE,URINE NEGATIVE (NEGATIVE); PROTEIN,URINE DIPSTICK 2+ (NEGATIVE)
[2021-03-21 17:51] LABS: KETONES,URINE TRACE (NEGATIVE)
[2021-03-21] MEDS ORDERED: SODIUM CHLORIDE 0.9% 1000ML 1,000 ML IV STA (17:57)
[2021-03-21] MEDS ORDERED: ONDANSETRON HCL INJ 2MG/ML 2ML 2 MG/ML VIAL IV STA (17:57)
[2021-03-21] MEDS ORDERED: MORPHINE SULFATE INJ 4 MG/ML INJ 1ML IV ONE (18:00)
[2021-03-21 18:01] LABS: BACTERIA,URINE MANY /HPF; EPITHELIAL CELLS,URINE MANY /LPF; RENAL EPITHELIAL CELLS,URINE MODERATE; TRANSITIONAL EPI CELLS,URINE FEW; WBC,URINE (MAN) >50 /HPF (0-5)
[2021-03-21 18:02] LABS: RBC,URINE 21-50 /HPF (0-5); YEAST,URINE MANY
[2021-03-21 18:06] LABS: ALANINE AMINOTRANSFERASE 13 IU/L (0-55); ALBUMIN 3.4 g/dL (3.5-5.0); ALBUMIN/GLOBULIN RATIO 0.7 (0.8-2.0); ALKALINE PHOSPHATASE 82 IU/L (40-150); ANION GAP 15.8 mmol/L (8-16); BLOOD UREA NITROGEN 15 mg/dL (7-26); BUN/CREATININE RATIO 20 (6-25); CALCIUM 8.7 mg/dL (8.4-10.2); CARBON DIOXIDE 27 mmol/L (22-29); CHLORIDE 99 mmol/L (98-107); CREATINE KINASE 36 IU/L (29-168); CREATININE, SERUM 0.74 mg/dL (0.57-1.11); EST GLOMERULAR FILTRATION RATE > 60 ML/MIN (60-); GLUCOSE 313 mg/dL (74-118); POTASSIUM 3.8 mmol/L (3.5-5.1); SODIUM 138 mmol/L (136-145)
[2021-03-21] MEDS ORDERED: IOPAMIDOL 370 MG/ML 200 ML INFUS..BTL INJ ONE (18:32)
[2021-03-21] MEDS ORDERED: SODIUM CHLORIDE 0.9% 50ML 50 ML ONE (18:32)
[2021-03-21] MEDS ORDERED: CEFTRIAXONE 1 GM in SODIUM CHLORIDE 0.9% 50ML 50 ML IV ONE (19:30)
[2021-03-21] MEDS ORDERED: CEPHALEXIN500 MG PO (20:16)
[2021-03-21] MEDS ORDERED: HYDROCODONE/APAP 10MG-325MG TAB PO ONE (20:30)
[2021-03-21 21:20] VITALS: BP 154/82
== END 2021-03-21 21:12 | disposition home or self-care (01) ==
LOC: ER 17:22
DX: R10.31 Right lower quadrant pain (principal); N39.0 Urinary tract infection, site not specified; E11.65 Type 2 diabetes mellitus with hyperglycemia; I10 Essential (primary) hypertension
CPT/HCPCS: 36415; 74177; 80053; 81001; 82550; 82553; 83690; 84484; 85025; 87086; 99284; J0696; J2270; J2405; J7030; Q9967

== ENCOUNTER 2023-02-15 12:38 | Emergency (ER) | payer OTHER ==
[~2023-02-15] VITALS: Ht 167.6 cm; Wt 95.3 kg
[~2023-02-15 12:38] MED LIST: CEPHALEXIN500 MG PO
[2023-02-15] MEDS ORDERED: SODIUM CHLORIDE 0.9% 1000ML 1,000 ML IV STA (13:23)
[2023-02-15] MEDS ORDERED: ONDANSETRON HCL INJ 2MG/ML 2ML 2 MG/ML VIAL IV STA (13:23)
[2023-02-15 13:28] LABS: BASOPHILS # (AUTO) 0.1 (0.0-0.1); BASOPHILS % 0.5 % (0.0-1.0); EOSINOPHILS # (AUTO) 0.3 (0.0-0.4); EOSINOPHILS % 2.6 % (0.0-6.0); HEMOGLOBIN 14.1 g/dL (12.0-16.0); LYMPHOCYTES # (AUTO) 2.9 (1.0-3.2); LYMPHOCYTES % 25.5 % (18.0-39.1); MEAN CORPUSCULAR HEMOGLOBIN 27.4 pg (28-32); MEAN CORPUSCULAR VOLUME 85.4 fL (81-99); MONOCYTES # (AUTO) 0.6 (0.2-0.8); MONOCYTES % 5.7 % (4.4-11.3); NEUTROPHILS # (AUTO) 7.3 (2.1-6.9); NEUTROPHILS % 65.4 % (38.7-80.0); PLATELET COUNT 224 x10e3/uL (140-360); RED BLOOD COUNT 5.15 x10e6/uL (3.6-5.1); RED CELL DISTRIBUTION WIDTH 13.5 % (11.7-14.4)
[2023-02-15 13:41] LABS: ALANINE AMINOTRANSFERASE 13 IU/L (0-55); ALBUMIN 3.5 g/dL (3.5-5.0); ALBUMIN/GLOBULIN RATIO 0.7 (0.8-2.0); ALKALINE PHOSPHATASE 92 IU/L (40-150); ANION GAP 11.8 mmol/L (8-16); BLOOD UREA NITROGEN 14 mg/dL (7-26); BUN/CREATININE RATIO 19 (6-25); CALCIUM 9.4 mg/dL (8.4-10.2); CARBON DIOXIDE 31 mmol/L (22-29); CHLORIDE 101 mmol/L (98-107); CREATINE KINASE 36 IU/L (29-168); CREATININE, SERUM 0.73 mg/dL (0.57-1.11); GLUCOSE 127 mg/dL (74-118); POTASSIUM 3.8 mmol/L (3.5-5.1); SODIUM 140 mmol/L (136-145)
[2023-02-15 14:27] LABS: CLARITY,URINE SL CLOUDY (CLEAR); COLOR,URINE YELLOW (YELLOW); KETONES,URINE NEGATIVE (NEGATIVE); LEUKOCYTE ESTERASE ,URINE NEGATIVE (NEGATIVE); NITRITE,URINE NEGATIVE (NEGATIVE); PROTEIN,URINE DIPSTICK 2+ (NEGATIVE); URINE UROBILINOGEN 2 mg/dL (0.2 - 1)
[2023-02-15 14:44] LABS: BACTERIA,URINE FEW /HPF; EPITHELIAL CELLS,URINE MODERATE /LPF; RENAL EPITHELIAL CELLS,URINE RARE; WBC,URINE (MAN) 0-5 /HPF (0-5)
[2023-02-15] MEDS ORDERED: NAPROXEN500 MG PO (15:10)
[2023-02-15] MEDS ORDERED: CYCLOBENZAPRINE10 MG PO (15:10)
[2023-02-15] MEDS ORDERED: ONDANSETRON ODT4 MG PO (15:10)
[2023-02-15] MEDS ORDERED: KETOROLAC TROMETHAMINE 30 MG/ML VIAL IV STA (15:24)
[2023-02-15 15:31] VITALS: O2SAT 100
== END 2023-02-15 15:37 | disposition home or self-care (01) ==
LOC: ER 12:45
DX: F07.81 Postconcussional syndrome (principal); W01.0XXD Fall on same level from slipping, tripping and stumbling without subsequent striking against object, subsequent encounter; R94.31 Abnormal electrocardiogram [ECG] [EKG]; I10 Essential (primary) hypertension; E11.65 Type 2 diabetes mellitus with hyperglycemia
CPT/HCPCS: 36415; 70450; 71046; 72125; 80053; 81001; 82550; 82553; 83880; 84484; 85025; 93005; 99284; J2405; J7030